=== PATIENT | male | born 1950 ===

== ENCOUNTER 2024-11-15 12:15 | Inpatient (IN) | payer OTHER ==
[~2024-11-15] VITALS: Ht 170.2 cm; Wt 88.9 kg
[2024-11-15 13:44] LABS: COVID-19 AG NEGATIVE (NEGATIVE)
[2024-11-15] MEDS ORDERED: CIALIS5 MG PO (14:51)
[2024-11-15] MEDS ORDERED: ALTACE2.5 MG PO (14:51)
[2024-11-21] MEDS ORDERED: MEDROLPACK PO (07:23)
[2024-11-21] MEDS ORDERED: PERCOCET 5-3251 EACH PO (07:23)
[2024-11-21] MEDS ORDERED: COLACE100 MG PO (07:24)
[2024-11-21] MEDS ORDERED: AMOX-CLAV 875-1 EACH PO (07:24)
[2024-11-21] MEDS ORDERED: ONDANSETRON ODT8 MG PO (07:24)
[2024-11-21] MEDS ORDERED: NEURONTIN800 MG PO (07:25)
[2024-11-21] MEDS ORDERED: GABAPENTIN100 M2 PO (07:25)
[2024-11-21] MEDS ORDERED: PROMETHAZINE HCL 50 MG/ML AMPUL IM PRN (07:30)
[2024-11-21] MEDS ORDERED: 0.9 % SODIUM CHLORIDE 1,000 ML IV SCH (07:30)
[2024-11-21] MEDS ORDERED: ENALAPRILAT DIHYDRATE 1.25 MG/ML VIAL IV PRN (07:30)
[2024-11-21] MEDS ORDERED: METHYLPREDNISOLONE ACETATE 80 MG/ML VIAL IU ONE (08:30)
[2024-11-21] MEDS ORDERED: METHYLPREDNISOLONE SOD SUCC 125 MG VIAL IV ONE (08:30)
[2024-11-21] MEDS ORDERED: VANCOMYCIN HCL 1,000 MG VIAL IR ONE (08:30)
[2024-11-21] MEDS ORDERED: CEFAZOLIN SODIUM 1,000 MG VIAL IV ONE (08:30)
[2024-11-21] MEDS ORDERED: VANCOMYCIN HCL 1,000 MG VIAL IV ONE (08:30)
[2024-11-21] MEDS ORDERED: MORPHINE SULFATE 4 MG/ML CARTRIDGE IV SCH (09:00)
[2024-11-21] MEDS ORDERED: MORPHINE SULFATE 4 MG/ML VIAL IV ONE ×2 (10:50→11:20)
[2024-11-21] MEDS ORDERED: HEMOSTATIC MATRIX WITH THROMBIN KIT TOP ONE (12:15)
[2024-11-21] MEDS ORDERED: DOCUSATE SODIUM 100MG CAP PO SCH (13:00)
[2024-11-21 14:31] VITALS: BP 107/55; O2SAT 100
[2024-11-21 16:30] VITALS: BP 116/66; O2SAT 96
[2024-11-21] MEDS ORDERED: METHYLPREDNISOLONE SOD SUCC 125 MG VIAL IV SCH (17:00)
[2024-11-21] MEDS ORDERED: CEFAZOLIN SODIUM 1,000 MG in 0.9 % SODIUM CHLORIDE 50 ML IV SCH (17:00)
[2024-11-21] MEDS ORDERED: ACETAMINOPHEN 500 MG GEL..CAP PO SCH (20:00)
[2024-11-21] MEDS ORDERED: GABAPENTIN 800 MG TABLET PO SCH (21:00)
[2024-11-21] MEDS ORDERED: VANCOMYCIN HCL 1,000 MG VIAL IV SCH (21:00)
[2024-11-22] MEDS ORDERED: SODIUM CHLORIDE 0.45 % 1,000 ML IV SCH
[2024-11-22 00:34] VITALS: BP 102/50; O2SAT 96
[2024-11-22] MEDS ORDERED: OxyCODONE HCL 5 MG TABLET (ROXICODONE) PO PRN (06:01)
[2024-11-22 07:05] LABS: BUN CREA RATIO 21.0 (7.0-25.0); CREATININE SERUM 0.8 mg/dL (0.70-1.30); GFR 94.76; GLUCOSE FASTING 135.0 mg/dL (65-100); OSMOLALITY SERUM 287.0 MOSM/KG (275-295)
[2024-11-22 07:39] LABS: BASO % 0.1 % (0.1-1.2); EOS # 0.00 (0.04-0.54); EOS % 0.0 % (0.7-7.0); LYMPH # 0.58 (1.18-3.74); LYMPH % 6.2 % (19.3-53.1); MEAN PLATELET VOLUME 10.40 fl (9.4-12.4); MONO # 0.32 (0.24-0.82); MONO % 3.4 % (4.7-12.5); NEUT # 8.42 (1.56-6.13); NEUT % 90.0 % (34.0-71.1); RED CELL DISTRIBUTION WIDTH 12.6 % (11.6-14.4)
[2024-11-22 08:44] VITALS: BP 120/68; O2SAT 96
[2024-11-22] MEDS ORDERED: TAMSULOSIN HCL 0.4 MG CAP PO SCH (09:00)
[2024-11-22 17:01] VITALS: BP 114/50; O2SAT 100
[2024-11-23 01:14] VITALS: BP 138/62; O2SAT 97
[2024-11-23 08:00] VITALS: BP 125/63; O2SAT 97
[2024-11-23 17:52] VITALS: BP 112/71; O2SAT 98
== END 2024-11-23 19:11 | disposition home or self-care (01) | DRG 428 ==
LOC: O/R 11-21 06:00 → SURH 11-21 06:00
PROVIDERS: ADMIT Orthopaedic Surgery Orthopaedic Surgery of the Spine; ATTEND Orthopaedic Surgery Orthopaedic Surgery of the Spine
PROC: 0SG0071 Fusion of Lumbar Vertebral Joint with Autologous Tissue Substitute, Posterior Approach, Posterior Column, Open Approach (ICD-10-PCS; 2024-11-21)
PROC: 0ST20ZZ Resection of Lumbar Vertebral Disc, Open Approach (ICD-10-PCS; 2024-11-21)
PROC: 0QB30ZZ Excision of Left Pelvic Bone, Open Approach (ICD-10-PCS; 2024-11-21)
PROC: 07DR0ZZ Extraction of Iliac Bone Marrow, Open Approach (ICD-10-PCS; 2024-11-21)
PROC: 4A12X4Z Monitoring of Cardiac Electrical Activity, External Approach (ICD-10-PCS; 2024-11-21)
PROC: 4A1104G Monitoring of Peripheral Nervous Electrical Activity, Intraoperative, Open Approach (ICD-10-PCS; 2024-11-21)
PROC: XRGC0R7 Fusion of 2 or more Lumbar Vertebral Joints using Custom-Made Anatomically Designed Interbody Fusion Device, Open Approach, New Technology Group 7 (ICD-10-PCS; principal; 2024-11-21 10:45)
DX: M43.16 Spondylolisthesis, lumbar region (principal); M48.062 Spinal stenosis, lumbar region with neurogenic claudication